=== PATIENT | female | born 1955 | race Caucasian/White ===

== ENCOUNTER 2017-06-30 16:39 | Observation (INO) | payer BC ==
[~2017-06-30] VITALS: Ht 160 cm; Wt 106.6 kg
[2017-06-30 16:40] VITALS: BP_SYST 144; BP_SYST 163; BP_DIAS 106; BP_DIAS 69; PULSE 86; PULSE 89; RESP 16; TEMP 98.1; O2SAT 96; O2SAT 97
[2017-06-30] MEDS ORDERED: SODIUM CHLORIDE 0.9% FLUSH 10 ML FLUSH IVF PRN (17:00)
[2017-06-30] MEDS ORDERED: ASPIRIN 325 MG TAB PO ONE (17:00)
--- NOTE | 2017-06-30 17:09 | PD ---
HPI Chief Complaint: chest pain Time Seen by Provider: 16:48 Travel History International Travel<30 days: No Contact w/Intl Traveler<30days: No Traveled to known affect area: No History of Present Illness HPI 62yo F with PMH of HTN, HLD, former cig smoker presents to the ED with c/o midsternal chest pressure today. States it is intermittent and nonradiating. + Cough. Denies any sob, fever, n/v, abdominal pain, focal weakness or numbness. States her mother's brother and sister both of heart attack early. Her uncle was 43yo when he and her aunt was in her 50s. Her brother also had heart attack in his 50s. States she had similar chest pressure 1 other time but saw a keeper helper instead because she was a smoker. Pt does not have a editorial specialist. Pt also with bilateral ankle swelling for a few days that improves with elevation. Pt was in a 3 hour flight 5 days ago. Denies any history of PE/DVT, recent surgery. PFSH Social History Tobacco Use: No Allergies-Medications (Allergen,Severity, Reaction): Coded Allergies: Sulfa (Sulfonamide Antibiotics) (Verified Allergy, Unknown, Hives, 06/30/17 ) Reported Meds & Prescriptions Reported Meds & Active Scripts Active Reported [place] Thyroid (Thyroid) 30 Mg Tab 30 Mg PO DAILY Pravastatin 40 Mg Tab 40 Mg PO HS Losartan (Losartan Potassium) 50 Mg Tab 50 Mg PO DAILY Hydrochlorothiazide 12.5 Mg Cap 12.5 Mg PO DAILY Review of Systems Except as stated in HPI: all other systems reviewed are Neg Physical Exam Narrative GENERAL: 62yo F not in distress. SKIN: Focused skin assessment warm/dry. NECK: Trachea midline. No JVD. CARDIOVASCULAR: Regular rate and rhythm. No murmur appreciated. RESPIRATORY: No accessory muscle use. Clear to auscultation. Breath sounds equal bilaterally. Saturating at 97% on RA. GASTROINTESTINAL: Abdomen soft, non-tender, nondistended. No rebound tenderness or guarding. MUSCULOSKELETAL: No obvious deformities. No clubbing. No cyanosis. No calf tenderness or edema. Mild bilateral ankle edema with no erythema. DP 2+. NEUROLOGICAL: Awake and alert. No obvious cranial nerve deficits. Motor grossly within normal limits. Normal speech. PSYCHIATRIC: Appropriate mood and affect; insight and judgment normal. Data Data Last Documented VS Vital Signs Date Time Temp Pulse Resp B/P Pulse Ox O2 Delivery O2 Flow Rate FiO2 06/30/17 16:40 98.1 86 16 163/106 96 06/30/17 16:40 Room Air Orders Basic Metabolic Panel (Bmp) (06/30/17 17:00) B-Type Natriuretic Peptide (06/30/17 17:00) Complete Blood Count With Diff (06/30/17 17:00) D-Dimer (06/30/17 17:00) Magnesium (Mg) (06/30/17 17:00) Prothrombin Time / Inr (Pt) (06/30/17 17:00) Act Partial Throm Time (Ptt) (06/30/17 17:00) Troponin I (06/30/17 17:00) Chest, Single Ap (06/30/17 17:00) Ecg Monitoring (06/30/17 17:00) Bilateral Bp Monitoring (06/30/17 17:00) Iv Access Insert/Monitor (06/30/17 17:00) Oximetry (06/30/17 17:00) Oxygen Administration (06/30/17 17:00) Aspirin (Aspirin) (06/30/17 17:00) Sodium Chloride 0.9% Flush (Ns Flush) (06/30/17 17:00) Admit Order (Ed Use Only) (06/30/17 18:41) Labs Laboratory Tests Test 06/30/17 17:05 White Blood Count 6.8 TH/MM3 Red Blood Count 4.50 MIL/MM3 Hemoglobin 13.6 GM/DL Hematocrit 40.3 % Mean Corpuscular Volume 89.5 FL Mean Corpuscular Hemoglobin 30.3 PG Mean Corpuscular Hemoglobin 33.8 % Concent Red Cell Distribution Width 12.8 % Platelet Count 213 TH/MM3 Mean Platelet Volume 9.4 FL Neutrophils (%) (Auto) 56.5 % Lymphocytes (%) (Auto) 32.7 % Monocytes (%) (Auto) 7.6 % Eosinophils (%) (Auto) 2.7 % Basophils (%) (Auto) 0.5 % Neutrophils # (Auto) 3.9 TH/MM3 Lymphocytes # (Auto) 2.2 TH/MM3 Monocytes # (Auto) 0.5 TH/MM3 Eosinophils # (Auto) 0.2 TH/MM3 Basophils # (Auto) 0.0 TH/MM3 CBC Comment DIFF FINAL Differential Comment Prothrombin Time 10.5 SEC Prothromb Time International 1.0 RATIO Ratio Activated Partial 26.6 SEC Thromboplast Time D-Dimer Quantitative (PE/DVT) 0.23 MG/L FEU Sodium Level 140 MEQ/L Potassium Level 3.4 MEQ/L Chloride Level 105 MEQ/L Carbon Dioxide Level 27.0 MEQ/L Anion Gap 8 MEQ/L Blood Urea Nitrogen 10 MG/DL Creatinine 0.83 MG/DL Estimat Glomerular Filtration 70 ML/MIN Rate Random Glucose 152 MG/DL Calcium Level 9.1 MG/DL Magnesium Level 2.0 MG/DL Troponin I LESS THAN 0.02 NG/ML B-Type Natriuretic Peptide 170 PG/ML MDM Medical Decision Making Medical Screen Exam Complete: Yes Emergency Medical Condition: Yes Interpretation(s) EKG: NSR 82bpm. Normal axis. TWI flattening. TWI I, aVL. PVC in trigeminy Differential Diagnosis ACS vs. PE vs. Pneumonia vs. CHF Narrative Course 62yo F with chest pressure intermittently today. Pt does have some bilateral ankle swelling and recent 3 hour plane ride. Pt has no calf tenderness on my exam. However, she is not sob and 3 hours is really not a long period so I have low suspicion for PE, will do D-dimer. Labs reviewed, no leukocytosis. BNP mildly elevated at 170. Troponin negative. D-dimer negative. CXR showed no acute disease. Pt given aspirin 325mg PO. I discussed with Dr. Bradford and she is accepted for chest pain center with serial EKG and cardiac enzymes. Diagnosis Primary Impression: Chest pain Qualified Code: R07.9 - Chest pain, unspecified type Admitting Information Admitting Physician Requests: Yola Chance DO Jun 30, 2017 17:09
[2017-06-30 17:15] LABS: AUTOMATED NEUTROPHIL # 3.9 TH/MM3 (1.8-7.7); BASOPHIL % 0.5 % (0.0-2.0); EOSINOPHIL # 0.2 TH/MM3 (0-0.4); EOSINOPHIL % 2.7 % (0.0-4.0); HEMATOCRIT 40.3 % (35.0-46.0); HEMO FLAGS DIFF FINAL; LYMPH % 32.7 % (9.0-44.0); LYMPHOCYTE # 2.2 TH/MM3 (1.0-4.8); MEAN CELL VOLUME 89.5 FL (80.0-100.0); MEAN CORPUSCULAR HEMOGLOBIN 30.3 PG (27.0-34.0); MEAN CORPUSCULAR HGB CONC 33.8 % (32.0-36.0); MONO % 7.6 % (0.0-8.0); NEUT % 56.5 % (16.0-70.0); PLATELET COUNT 213 TH/MM3 (150-450); RED CELL DISTRIBUTION WIDTH 12.8 % (11.6-17.2); WHITE BLOOD COUNT 6.8 TH/MM3 (4.0-11.0)
[2017-06-30 17:25] LABS: CHLORIDE 105 MEQ/L (98-107); POTASSIUM 3.4 MEQ/L (3.5-5.1); SODIUM (NA) 140 MEQ/L (136-145)
[2017-06-30 17:28] LABS: ANION GAP 8 MEQ/L (5-15); BLOOD UREA NITROGEN 10 MG/DL (7-18)
[2017-06-30 17:31] LABS: GLOMERULAR FILTRATION RATE 70 ML/MIN (>89)
[2017-06-30 17:45] LABS: APTT (PATIENT) 26.6 SEC (24.3-30.1); PROTHROMBIN TIME - PATIENT 10.5 SEC (9.8-11.6)
[2017-06-30] MEDS ORDERED: LOSA25TA PO (17:49)
[2017-06-30] MEDS ORDERED: LOSA50TA PO (17:49)
[2017-06-30] MEDS ORDERED: PRAV40TA2 PO (17:49)
[2017-06-30] MEDS ORDERED: ARMO30TA PO (17:49)
[2017-06-30] MEDS ORDERED: HYDR12.57 PO (17:49)
--- NOTE | 2017-06-30 18:05 | RADRPT ---
EXAM DATE/TIME: 06/30/2017 17:31 [facility] COMPARISON: No previous studies available for comparison. INDICATIONS : Chest pressure. MEDICAL HISTORY : None. SURGICAL HISTORY : None. ENCOUNTER: Initial ACUITY: 2 days PAIN SCORE: 5/10 LOCATION: Bilateral chest FINDINGS: A single view of the chest demonstrates the lungs to be symmetrically aerated without evidence of mas s, infiltrate or effusion. The cardiomediastinal contours are unremarkable. There are calcified left hilar lymph nodes. There are electrocardiogram leads. Osseous structures are intact. CONCLUSION: No acute disease. Kieran Aceves MD on June 30, 2017 at 18:04 Board Certified Radiologist. This report was verified electronically.
[2017-06-30] MEDS ORDERED: ACETAMINOPHEN/HYDROcodone 325 MG/7.5 MG TAB PO PRN (18:45)
[2017-06-30] MEDS ORDERED: ACETAMINOPHEN 500 MG CPLT PO PRN (18:45)
[2017-06-30] MEDS ORDERED: ALPRAZolam 0.25 MG TAB PO PRN (18:45)
[2017-06-30] MEDS ORDERED: SODIUM CHLORIDE 0.9% FLUSH 10 ML FLUSH IV FLUSH PRN (18:45)
[2017-06-30] MEDS ORDERED: NITROGLYCERIN 0.4 MG SL 25 TABS/BTL SL PRN (18:45)
[2017-06-30] MEDS ORDERED: ONDANSETRON HCL 4 MG/2 ML VIAL IV PRN (18:45)
[2017-06-30] MEDS ORDERED: MORPHINE SULFATE 4 MG/ML INJ IV PRN (18:45)
[2017-06-30 19:09] VITALS: BP 114/70; PULSE 86; O2SAT 96
[2017-06-30 21:15] VITALS: BP 136/81; PULSE 68; RESP 20; TEMP 96; O2SAT 97
[2017-06-30 21:30] VITALS: PULSE 83
[2017-06-30] MEDS: FAMOTIDINE 20 MG TAB PO SCH (21:34)
[2017-06-30] MEDS: SODIUM CHLORIDE 0.9% FLUSH 10 ML FLUSH IV FLUSH SCH (21:35)
[2017-06-30 21:38] LABS: MAGNESIUM 2.1 MG/DL (1.5-2.5)
[2017-06-30 21:49] LABS: CREATINE KINASE 50 U/L (26-192)
[2017-06-30 23:50] VITALS: O2SAT 97
[2017-07-01] VITALS: BP 111/77; PULSE 79; RESP 20; TEMP 96; O2SAT 96
[2017-07-01 00:25] LABS: CREATINE KINASE 45 U/L (26-192)
[2017-07-01 04:00] VITALS: BP 121/81; PULSE 54; RESP 20; TEMP 96.9; O2SAT 96
[2017-07-01 08:00] VITALS: BP 151/86; PULSE 54; PULSE 80; RESP 18; TEMP 97.2; O2SAT 95
[2017-07-01] MEDS: FAMOTIDINE 20 MG TAB PO SCH (08:13)
--- NOTE | 2017-07-01 08:19 | HHI.HP ---
HPI Service [facility] Primary [facility] Physician Non-Staff Admission Diagnosis Chest pain Diagnoses: (1) Chest pain Diagnosis: Principal (2) Hypertension Diagnosis: Secondary (3) Hyperlipidemia Diagnosis: Secondary Travel History International Travel<30 Days: No Contact w/Intl Traveler <30 Da: No Traveled to Known Affected Are: No History of Present Illness Written by Bhavin Chong, acting as scribe for Dr. Bradford on 07/01/17 at 08: 18. Is a 62-year-old female with known history of hypertension, hypokalemia, history tobacco use, hypothyroidism, Gastrosoft reflux who presented to emergency department because of lower extremity swelling. She states that she just returned back did not get any better and started progressively getting worse. Because of that reason she came to emergency department for evaluation. She indicates that she had associated chest pressure with chest tightness, shortness of breath, she described the discomfort is a 5/10 on a pain scale which was intermittent at an hour at a time. She has had a dry nonproductive cough since returning back from [place]. She denies any radiation of pain, nausea, vomiting, lightheadedness, dizziness, diaphoresis. Patient had workup done emergency department with d-dimer which is negative rule out any embolic event. She was given aspirin and patient states that her discomfort went away completely. Patient denies any previous cardiac workup. Patient had workup done emergency department and it was recommended by the ER physician that patient be observed and chest pain center for further evaluation and management. Review of Systems Respiratory: COMPLAINS OF: Cough, Shortness of breath Cardiovascular: COMPLAINS OF: Chest pain, Lower Extremity Edema Except as stated in HPI: all other systems reviewed are Neg Past Family Social History Past Medical History Hypertension Hyponatremia Hypothyroidism Gastroesophageal reflux History tobacco use Past Surgical History Patient denies any previous surgeries Reported Medications Reported Meds & Active Scripts Active Reported [place] Thyroid (Thyroid) 30 Mg Tab 30 Mg PO DAILY Pravastatin 40 Mg Tab 40 Mg PO HS Losartan (Losartan Potassium) 50 Mg Tab 50 Mg PO DAILY Hydrochlorothiazide 12.5 Mg Cap 12.5 Mg PO DAILY Allergies: Coded Allergies: Sulfa (Sulfonamide Antibiotics) (Verified Allergy, Unknown, Hives, 06/30/17 ) Family History Reviewed and significant for mother at age 80 from myocardial infarction, brother is had 3 myocardial infarctions, sister from breast cancer with history of heart disease Social History Patient quit smoking in 2007, prior to that she smoked 1 pack a cigarettes a day since she was 20 years old. Denies any alcohol or illicit drugs Physical Exam Vital Signs Vital Signs Date Time Temp Pulse Resp B/P Pulse Ox O2 Delivery O2 Flow Rate FiO2 07/01/17 04:00 96.9 54 20 121/81 96 07/01/17 00:00 96.0 79 20 111/77 96 06/30/17 23:50 97 21 06/30/17 21:30 83 06/30/17 21:15 96.0 68 20 136/81 97 06/30/17 19:10 18 Room Air 06/30/17 19:09 86 114/70 96 Room Air 06/30/17 16:40 98.1 86 16 163/106 96 06/30/17 16:40 16 06/30/17 16:40 89 16 163/106 97 144/69 06/30/17 16:40 97 Room Air Physical Exam GENERAL: Well-developed, well-nourished, in no acute distress. alert and orientated HEENT: Head is normocephalic without any lesions or masses noted. Facial features are symmetric. Eyes: Pupils equal round reactive to light. Extraocular muscles are intact. Conjunctivae were clear. Oropharyngeal: Pharynx without any erythema edema. Tongue is midline without deviation. Buccal mucosa is moist without any masses or lesions NECK: Supple without any masses. Trachea midline no deviation. No JVD, no bruits are appreciated CARDIAC: Regular rhythm, regular rate. S1/S2 are heard. No murmurs gallops or rubs. LUNGS: Clear to auscultation bilaterally. No wheeze, rhonchi or rales. No use of accessory muscles on inspiration or expiration. ABDOMEN: Soft, nontender. Nondistended. Bowel sounds heard in all 4 quadrants. No organomegaly or masses. Negative rebound, negative guarding EXTREMITIES: No edema, pulses are equal bilaterally. No cyanosis or clubbing NEUROLOGY: Mood and affect appear appropriate. Cranial nerves II through XII grossly intact. Muscle strength 5/5 in upper and lower extremities bilaterally. Deep tendon reflexes are 2+ in upper and lower extremities bilaterally. Laboratory Laboratory Tests Test 06/30/17 06/30/17 06/30/17 17:05 20:30 23:25 White Blood Count 6.8 Red Blood Count 4.50 Hemoglobin 13.6 Hematocrit 40.3 Mean Corpuscular Volume 89.5 Mean Corpuscular Hemoglobin 30.3 Mean Corpuscular Hemoglobin 33.8 Concent Red Cell Distribution Width 12.8 Platelet Count 213 Mean Platelet Volume 9.4 Neutrophils (%) (Auto) 56.5 Lymphocytes (%) (Auto) 32.7 Monocytes (%) (Auto) 7.6 Eosinophils (%) (Auto) 2.7 Basophils (%) (Auto) 0.5 Neutrophils # (Auto) 3.9 Lymphocytes # (Auto) 2.2 Monocytes # (Auto) 0.5 Eosinophils # (Auto) 0.2 Basophils # (Auto) 0.0 CBC Comment DIFF FINAL Differential Comment Prothrombin Time 10.5 Prothromb Time International 1.0 Ratio Activated Partial 26.6 Thromboplast Time D-Dimer Quantitative (PE/DVT) 0.23 Sodium Level 140 Potassium Level 3.4 Chloride Level 105 Carbon Dioxide Level 27.0 Anion Gap 8 Blood Urea Nitrogen 10 Creatinine 0.83 Estimat Glomerular Filtration 70 Rate Random Glucose 152 Calcium Level 9.1 Magnesium Level 2.0 2.1 Troponin I LESS THAN 0.02 LESS THAN 0.02 LESS THAN 0.02 B-Type Natriuretic Peptide 170 Total Creatine Kinase 50 45 Result Diagram: 06/30/17 1705 06/30/17 170 Imaging Last Impressions Chest X-Ray 06/30/17 170 Signed Impressions: Service Date/Time: Friday, June 30, 2017 17:31 - CONCLUSION: No acute disease. Kieran Aceves MD Assessment and Plan Problem List: (1) Chest pain ICD Code: R07.9 Status: Acute Assessment and Plan Chest pain, atypical Patient presented with lower extremity edema with associated chest pressure with nonproductive cough and shortness of breath. Patient has increased risk factors to include age, hypertension, hypokalemia, family history heart disease, history tobacco use With the patient's presenting symptoms with recent travel, shortness of breath , dry nonproductive cough, her chest pressure could be related to underlying bronchitis, bronchiolitis. Patient has been ruled out for any acute coronary event with serial cardiac enzymes which are negative, serial EKGs were reviewed and indicate sinus rhythm with frequent PVCs We'll pursue nuclear stress test rule out any underlying ischemia Continue aspirin and nitroglycerin as needed Hypertension, hyperlipidemia, gastric reflux Continue home medications DVT prevention Sequential compression devices This note was transcribed by latoya Chong. I, Dr. Nithin Bradford personally performed the history, physical exam, and medical decision making; and confirmed the accuracy of the information in the transcribed note. Authenticated by Dr. Nithin Bradford on 07/01/17 at 08:18. Discharge disposition Discharge home in stable condition if stress test is negative Activity: Ad cristhian. Diet: Healthy heart diet Medications per medication reconciliation Follow-up primary medical doctor in one week Code Status Full code Discussed Condition With Patient Problem Qualifiers (1) Chest pain: Qualified Code: R07.9 - Chest pain, unspecified type Bhavin Chong Jul 01, 2017 08:19 Nithin Bradford MD Jul 01, 2017 08:21
[2017-07-01 08:58] VITALS: O2SAT 97
[2017-07-01] MEDS: SODIUM CHLORIDE 0.9% FLUSH 10 ML FLUSH IV FLUSH SCH (09:00)
[2017-07-01 12:00] VITALS: BP 156/83; PULSE 82; RESP 18; TEMP 97.6; O2SAT 95
--- NOTE | 2017-07-01 12:59 | RADRPT ---
EXAM DATE/TIME: 07/01/2017 10:43 [facility] COMPARISON: No previous studies available for comparison. INDICATIONS : Midsternal chest pain. Angina. Abnormal EKG. DOSE: 25.9 mCi Tc99m Myoview at stress. 8.1 mCi Tc99m Myoview at rest. 0.4 mg Lexiscan STRESS SYMPTOMS: Weak feeling and dizzy. EJECTION FRACTION: 63% MEDICAL HISTORY : Hypertension. History of smoking. SURGICAL HISTORY : None. ENCOUNTER: Initial ACUITY: 1 day PAIN SCALE: 2/10 LOCATION: Midsternal chest TECHNIQUE: The patient underwent pharmacologic stress with infusion of prescribed dose. Continuous ECG tracing was monitored during stress. Gated SPECT imaging was performed after stress and conventional SPECT i maging was performed at rest. The examination was performed on a SPECT/CT scanner, both attenuation and non-corrected datasets were reviewed. FINDINGS: The Gated cineloop images demonstrate no focal wall motion abnormality. The left ventricular injecti on fraction is calculated at 63%. The cardiac SPECT stress and rest images demonstrate no fixed or reversible defects to suggest infarc t or ischemia. CONCLUSION: 1. No evidence of infarct, ischemia or focal wall motion abnormality. 2. Left ventricular injection fraction is calculated at 63% RISK CATEGORY: Low risk (less than 1% annual mortality rate). Edwardo Oro MD on July 01, 2017 at 12:20 Board Certified Radiologist. This report was verified electronically.
--- NOTE | 2017-07-01 13:08 | HHI.DCPOC ---
Discharge Care Plan Diagnosis: (1) Chest pain Goals to Promote Your Health * To prevent worsening of your condition and complications * To maintain your health at the optimal level Directions to Meet Your Goals Take your medications as prescribed Follow your dietary instruction Follow activity as directed Keep your appointments as scheduled Take your immunizations and boosters as scheduled If your symptoms worsen call your PCP, if no PCP go to Urgent Care Center or Emergency Room Smoking is Dangerous to Your Health. Avoid second hand smoke Call the 24-hour hour crisis hotline for domestic abuse at Bhavin Chong Jul 01, 2017 13:08
--- NOTE | 2017-07-01 14:49 | TR ---
Date Performed: 07/01/2017 Time Performed: 11:16:02 DOCTOR: Marc Arciniega DRUG LIST: CLINICAL HISTORY: REASON FOR TEST: REASON FOR ENDING: OBSERVATION: CONCLUSION: Lexiscan stress test was performed under standard four minute protocol. Radionuclid e was injected one minute prior to ending the test. No electrocardiographic abormalities were present to suggest ischemia. Nuclear imaging and interpretation are pending. COMMENTS:
--- NOTE | 2017-07-01 15:07 | EKG ---
Date Performed: 06/30/2017 Time Performed: 23:45:49 PTAGE: 62 years EKG: Sinus rhythm WITH FREQUENT VENTRICULAR PREMATURE COMPLEXES WITH MARKED RHYTHM IRREGULARITY, POSSIBLE NON-CONDUCTE D PAC, SA BLOCK, AV BLOCK, OR SINUS PAUSE LOW QRS VOLTAGE IN PRECORDIAL LEADS ST DEVIATION AND MODERA TE T-WAVE ABNORMALITY, ABNORMAL ECG PREVIOUS TRACING : 06/30/2017 20.37 Since previous tracing, no significant change noted DOCTOR: Marc Arciniega Interpretating Date/Time 07/01/2017 15:05:35
--- NOTE | 2017-07-01 15:10 | EKG ---
Date Performed: 06/30/2017 Time Performed: 20:37:51 PTAGE: 62 years EKG: Sinus rhythm WITH FREQUENT VENTRICULAR PREMATURE COMPLEXES MODERATE T-WAVE ABNORMALITY, ABNORMAL ECG PREVIOUS TRACING : 06/30/2017 16.45 Since previous tracing, no significant change noted DOCTOR: Marc Arciniega Interpretating Date/Time 07/01/2017 15:09:49
--- NOTE | 2017-07-01 15:14 | EKG ---
Date Performed: 06/30/2017 Time Performed: 16:45:14 PTAGE: 62 years EKG: Sinus rhythm WITH FREQUENT VENTRICULAR PREMATURE COMPLEXES POSSIBLE LEFT ATRIAL ENLARGEMENT MODERATE T-WAVE ABNOR MALITY ABNORMAL ECG INTERPRETATION BASED ON A DEFAULT AGE OF 40 YEARS NO PREVIOUS TRACING DOCTOR: Marc Arciniega Interpretating Date/Time 07/01/2017 15:13:58
== END 2017-07-01 17:20 | disposition home or self-care (01) ==
LOC: PHED 16:39 → PHEDA 18:41 → PH3B 20:49
PROVIDERS: ADMIT Hospitalist; ATTEND Hospitalist
DX: R07.89 Other chest pain (principal); E78.5 Hyperlipidemia, unspecified; I10 Essential (primary) hypertension; E87.6 Hypokalemia; M79.89 Other specified soft tissue disorders; R94.31 Abnormal electrocardiogram [ECG] [EKG]; E03.9 Hypothyroidism, unspecified; K21.9 Gastro-esophageal reflux disease without esophagitis; Z82.49 Family history of ischemic heart disease and other diseases of the circulatory system; Z87.891 Personal history of nicotine dependence
CPT/HCPCS: 71010; 78452; 80048; 82550; 83735; 83880; 84484; 85025; 85379; 85610; 85730; 93005; 93017; 99285; A9502; G0378